=== PATIENT | male | born 1955 | race Caucasian/White ===

== ENCOUNTER 2018-10-27 16:54 | Emergency (ER) | payer OTHER ==
[2018-10-27 19:41] VITALS: BP 175/76
--- NOTE | 2018-10-27 19:41 | Emergency Department Report ---
Blank Doc - Documentation Documentation: 62 y o homeless male presents to Ed cc of bilateral feet pain x few days, no i njury no trauma pt very talkative and speaking unrelated to sxs ambulatory with a cane [facility] evaluate
--- NOTE | 2018-10-28 00:27 | Emergency Department Report ---
- General Chief complaint: Extremity Injury, Lower Stated complaint: LEG PAIN Time Seen by Provider: 10/27/18 19:38 Source: patient, EMS Mode of arrival: Wheelchair Limitations: Physical Limitation - History of Present Illness Initial comments: 62-year-old homeless male presents to the emergency room complaining of bilateral feet swelling that started a couple days ago. It was reported the patient was seen here last night but left before being evaluated. Patient admits that he constantly walking on his feet. He denies any fever or chills. MD complaint: rash -: days(s) (2) Location: L foot, R foot Severity scale (0 -10): 0 Quality: aching Consistency: constant Improves with: immobilization Worsens with: movement Associated symptoms: denies other symptoms Treatments Prior to Arrival: none - Related Data Previous Rx's Medication Instructions Recorded Last Taken Type Ammonium Lactate [Lac-Hydrin 1 applic TP BID #1 bottle 10/28/18 Unknown Rx Lotion] Cephalexin [Keflex] 500 mg PO BID #14 capsule 10/28/18 Unknown Rx Clotrimazole/Betamethasone Dip 1 applic TP BID #45 cream..g. 10/28/18 Unknown Rx [Lotrisone Cream] Allergies Allergy/AdvReac Type Severity Reaction Status Date / Time No Known Allergies Allergy Unverified 10/27/18 17:19 Abscess Boil HPI - HPI Chief Complaint: Extremity Injury, Lower Stated Complaint: LEG PAIN Time Seen by Provider: 10/27/18 19:38 Home Medications: Previous Rx's Medication Instructions Recorded Last Taken Type Ammonium Lactate [Lac-Hydrin 1 applic TP BID #1 bottle 10/28/18 Unknown Rx Lotion] Cephalexin [Keflex] 500 mg PO BID #14 capsule 10/28/18 Unknown Rx Clotrimazole/Betamethasone Dip 1 applic TP BID #45 cream..g. 10/28/18 Unknown Rx [Lotrisone Cream] Allergies/Adverse Reactions: Allergies Allergy/AdvReac Type Severity Reaction Status Date / Time No Known Allergies Allergy Unverified 10/27/18 17:19 ED Review of Systems ROS: Stated complaint: LEG PAIN Other details as noted in HPI Comment: All other systems reviewed and negative Musculoskeletal: joint swelling Skin: rash ED Past Medical Hx - Past Medical History Previous Medical History?: No - Surgical History Past Surgical History?: Yes Additional Surgical History: Fractured Spine - Social History Smoking Status: Never Smoker Substance Use Type: None - Medications Home Medications: Home Medications Medication Instructions Recorded Confirmed Last Taken Type Ammonium Lactate [Lac-Hydrin 1 applic TP BID #1 bottle 10/28/18 Unknown Rx Lotion] Cephalexin [Keflex] 500 mg PO BID #14 capsule 10/28/18 Unknown Rx Clotrimazole/Betamethasone Dip 1 applic TP BID #45 cream..g. 10/28/18 Unknown Rx [Lotrisone Cream] ED Physical Exam - General Limitations: Physical Limitation General appearance: alert, in no apparent distress - Head Head exam: Present: atraumatic, normocephalic - Eye Eye exam: Present: EOMI - ENT ENT exam: Present: mucous membranes moist - Neurological Exam Neurological exam: Present: alert, oriented X3 - Expanded Psychiatric Exam Expanded Focused psych exam: Present: loose associations - Expanded Skin Exam Expanded Distribution of rash: involves palms/soles, RLE (feet), LLE Description of rash: Present: erythematous, swelling, macular ED Course Vital Signs 10/27/18 19:36 Temperature 98.1 F Pulse Rate 86 Respiratory 18 Rate Blood Pressure 175/76 O2 Sat by Pulse 97 Oximetry ED Medical Decision Making - Medical Decision Making Patient has been evaluated by this provider in [facility]. Patient appears to have a tinea pedis will place patient on antifungal cream. Patient is to follow-up with a research technician or liquid fertilizer servicer. Critical care attestation.: If time is entered above; I have spent that time in minutes in the direct care of this critically ill patient, excluding procedure time. ED Disposition Clinical Impression: Tinea pedis of both feet Disposition: DC-01 TO HOME OR SELFCARE Is pt being admited?: No Does the pt Need Aspirin: No Condition: Stable Instructions: Tinea Pedis (ED) Additional Instructions: Please take medications as prescribed. Follow-up with the research technician and symptoms persist or gets worse. Prescriptions: Cephalexin [Keflex] 500 mg PO BID #14 capsule Ammonium Lactate [Lac-Hydrin Lotion] 1 applic TP BID #1 bottle Clotrimazole/Betamethasone Dip [Lotrisone Cream] 1 applic TP BID #45 cream..g. Referrals: EUNICE PAULINO MD [Primary Care Provider] - 3-5 Days
== END 2018-10-28 01:02 | disposition home or self-care (01) ==
LOC: ED 16:54
DX: B35.3 Tinea pedis (principal); Z98.890 Other specified postprocedural states

== ENCOUNTER 2018-10-31 06:01 | Emergency (ER) | payer OTHER ==
--- NOTE | 2018-10-31 08:46 | Emergency Department Report ---
HPI - General Chief Complaint: Extremity Problem,Nontraumatic Time Seen by Provider: 10/31/18 08:45 - HPI HPI: 63 y.o male with bilateral feet swelling, redness, due to walking a lot. states he is homeless. ED Past Medical Hx - Past Medical History Previous Medical History?: No - Surgical History Past Surgical History?: Yes Additional Surgical History: Fractured Spine - Social History Smoking Status: Never Smoker Substance Use Type: None - Medications Home Medications: Home Medications Medication Instructions Recorded Confirmed Last Taken Type Ammonium Lactate [Lac-Hydrin 1 applic TP BID #1 bottle 10/28/18 Unknown Rx Lotion] Cephalexin [Keflex] 500 mg PO BID #14 capsule 10/28/18 Unknown Rx Clotrimazole/Betamethasone Dip 1 applic TP BID #45 cream..g. 10/28/18 Unknown Rx [Lotrisone Cream] Ketoconazole 2% [Nizoral] 1 applicatio TP QDAY #1 tube 10/31/18 Unknown Rx Sulfamethoxazole/Trimethoprim 1 each PO BID #14 tablet 10/31/18 Unknown Rx [Bactrim DS TAB] ED Review of Systems ROS: Stated complaint: MED REFILL Other details as noted in HPI Comment: All other systems reviewed and negative Eyes: denies: as per HPI, eye pain ENT: denies: ear pain Cardiovascular: denies: chest pain, palpitations Endocrine: denies: excessive sweating Gastrointestinal: denies: abdominal pain Musculoskeletal: joint swelling Skin: change in color Physical Exam - Physical Exam Physical Exam: ED Physical Exam - General Limitations: No Limitations General appearance: alert, in no apparent distress - Head Head exam: Present: atraumatic, normocephalic - Eye Eye exam: Present: normal appearance, PERRL, EOMI Pupils: Present: normal accommodation - ENT ENT exam: Present: mucous membranes moist, dry blood right nostril - Neck Neck exam: Present: normal inspection, full ROM. Absent: lymphadenopathy - Respiratory Respiratory exam: Present: normal lung sounds bilaterally. Absent: respiratory distress, wheezes, stridor, chest wall tenderness - Cardiovascular Cardiovascular Exam: Present: regular rate, normal rhythm, normal heart sounds - GI/Abdominal GI/Abdominal exam: Present: soft, normal bowel sounds. Absent: tenderness, bruit, hernia - Rectal Rectal exam: Present: deferred - External exam: Present: normal external exam ext: bilat redness dorsal feet, fungal infection in btwn toes. Critical care attestation.: If time is entered above; I have spent that time in minutes in the direct care of this critically ill patient, excluding procedure time. ED Disposition Clinical Impression: Tinea pedis of both feet Cellulitis Qualifiers: Site of cellulitis: extremity Site of cellulitis of extremity: lower extremity Laterality: unspecified laterality Qualified Code(s): L03.119 - Cellulitis of unspecified part of limb Disposition: TO HOME OR SELFCARE Is pt being admited?: No Does the pt Need Aspirin: No Condition: Stable Prescriptions: Sulfamethoxazole/Trimethoprim [Bactrim DS TAB] 1 each PO BID #14 tablet Ketoconazole 2% [Nizoral] 1 applicatio TP QDAY #1 tube Referrals: EUNICE PAULINO MD [Primary Care Provider] - 3-5 Days
== END 2018-10-31 09:17 | disposition home or self-care (01) ==
LOC: ED 06:01
DX: B35.3 Tinea pedis (principal)